=== PATIENT | female | born 1955 | race Caucasian/White ===

== ENCOUNTER 2021-09-11 00:41 | Emergency (ER) | payer MEDICARE ==
[~2021-09-11] VITALS: Ht 165.1 cm; Wt 93.0 kg
[2021-09-11 00:55] VITALS: BP 163/92
[2021-09-11] MEDS ORDERED: AMOX1TAB61 PO (01:02)
--- NOTE | 2021-09-11 01:04 | PHYS DOC ---
Adult General Chief Complaint Chief Complaint: SORE THROAT HPI HPI Patient is a 66-year-old female who presents with sore throat and nasal congestion for the last 4 days. Denies any recent traumas, illnesses, fevers, chest pain, shortness of breath, cough, abdominal pain, nausea, vomiting, dysuria, hematuria or blood in the stool. States he is eating and drinking normally for her. States he is making urine and stool normally for her. Review of Systems Review of Systems Review of systems otherwise unremarkable except noted in HPI Physical Exam Physical Exam Constitutional: Well developed, well nourished, no acute distress, non-toxic appearance. [] HENT: Normocephalic, atraumatic, bilateral external ears normal, bilateral tympanic membranes normal, bilateral posterior oropharyngeal erythema, oropharynx moist, no oral exudates, nose normal. [] Eyes: conjunctiva normal, no discharge. [] Neck: Normal range of motion, no tenderness, supple, no stridor, left-sided cervical lymphadenopathy. [] Cardiovascular:Heart rate regular rhythm, no murmur [] Lungs & Thorax: Bilateral breath sounds clear to auscultation [] Abdomen: soft, no tenderness, no masses, no pulsatile masses. [] Skin: Warm, dry, no erythema, no rash. [] Neurologic: Alert and oriented X 3, normal motor function, normal sensory function, no focal deficits noted. [] Psychologic: Affect normal, judgement normal, mood normal. [] Current Patient Data Vital Signs Vital Signs Date Time Temp Pulse Resp B/P (MAP) Pulse Ox O2 Delivery O2 Flow Rate FiO2 09/11/21 00:55 98.6 73 18 163/92 (115) 96 Room Air EKG EKG [] Radiology/Procedures Radiology/Procedures [] Heart Score C/O Chest Pain: No Risk Factors: Risk Factors: DM, Current or recent (<one month) smoker, HTN, HLP, family history of CAD, obesity. Risk Scores: Risk Factors: DM, Current or recent (<one month) smoker, HTN, HLP, family history of CAD, obesity. Course & Med Decision Making Course & Med Decision Making Patient is a 66-year-old female who presents with sore throat and nasal congestion Vital signs notable for hypertension, physical exam noted above. Centor criteria suggestive of strep pharyngitis as well as exam. Started on steroids and Augmentin in the ED. Discussed symptomatic treatment at home. Advised to call primary care physician in the morning to discuss ED visit and set up a follow-up. Gave return precautions to the ED. Patient grateful, verbalized understanding and agreed with plan of discharge. [] Dragon Disclaimer Dragon Disclaimer This electronic medical record was generated, in whole or in part, using a voice recognition dictation system. Departure Departure: Impression: Primary Impression: Strep pharyngitis Disposition: HOME / SELF CARE / HOMELESS Condition: GOOD Referrals: NON,STAFF (PCP) AMBERLY SONG Patient Instructions: Strep Throat Additional Instructions: Thank you for coming into the emergency department tonight and allow us to take care of you. Please read the attached information carefully to go back over some of the things we discussed. Please continue a Tylenol, ibuprofen and Cepacol lozenges regimen as we discussed. Please take antibiotics as prescribed. You were swabbed for Covid although it does look like you have strep throat. Please read the attached information and quarantine appropriately. Please call your primary care physician in the morning to update on your ED visit and set up a follow-up as soon as you can. Please come back with new or concerning symptoms as discussed. You have been tested for or diagnosed with COVID-19. It is an infection caused by a new type of coronavirus. COVID-19 will cause cold-like or mild flu symptoms in most. It can cause more severe symptoms like problems breathing in some. There is no treatment for COVID-19. The body will clear the infection over time. Self-care will help to ease discomfort. Steps to Take: Self-Care Rest as needed. Healthy habits may help you feel better. Steps include: Choose healthy foods including fruits and vegetables. Drink water throughout the day. Get plenty of sleep each night. If you smoke, try to quit. It may ease breathing. Avoid alcohol. Keep Others Healthy The virus can spread to others. Droplets are released every time you sneeze or cough. The droplets can get into the mouth, nose, or eyes of people near you and lead to infection. To lower the chances of spreading COVID-19 to others: Stay at home until your doctor has said it is safe to leave. If you tested positive this will mean staying isolated until both of the following are true: At least 7 days have passed since the start of illness. You are free of fever for at least 72 hours without the use of medicine. During this time: - Avoid public areas, events, or transportation. Do not return to work or school until your doctor has said it is safe to do so. - Call ahead if you need to go to a medical center. Let them know you may have COVID-19. It will help them guide you where to go. They may also ask you to wear a facemask when you come to the office. - If you call for emergency medical services, let them know you may have COVID- 19. While at home: - Try to avoid close contact with others. Stay about 6 feet away. - If possible, spend most of your time in a separate room from others. - Use a face mask if you will be in close contact with others such as sharing a room or vehicle. - Have someone wipe down common surfaces in the home. Use household cosmetic sales consultant every day on areas like doorknobs, counters, or sinks. - Cough or sneeze into a tissue. Throw the tissue away right after use. If a tissue is not available, cough or sneeze into your elbow. - Wash your hands often. Wash them after sneezing or coughing. Use soap and water and wash for at least 20 seconds. Alcohol based hand power cleaner operator can be used if soap and water is not available. - Do not prepare food for others. Avoid sharing personal items like forks, spoons, or toothbrushes. - Avoid close contact with pets while you are sick. There is no evidence of the virus passing to pets. This is a safety step until more is known about this virus. Isolation can be frustrating. Social interaction can help. Keep in touch with friends and family through phone and tech options. You can still interact with others in your home, just keep a safe distance of about 6 feet. Follow-up: Your doctors office will check in with you to see if there are any changes in your health. You may be asked to keep track of symptoms to share with them. They will also let you know when you are clear to be in public again. Problems to Look Out For: Contact your doctor if your recovery is not going as you expect. Get emergency care if you have problems such as: - Trouble breathing - Nonstop chest pain or pressure - Changes in awareness, confusion, or problems waking - Lips or face have bluish color - Worsening of symptoms If you think you have an emergency, call for emergency medical services right away. As taken from [facility] [place] Health Scripts Amoxicillin/Potassium Clav (AUGMENTIN 235125 TABLET) 1 Each Tablet 1 TAB PO BID for strep throat for 10 Days, #19 TAB 0 Refills Prov: DOMINGO LOPEZ MD 09/11/21 DOMINGO LOPEZ MD Sep 11, 2021 01:04
[2021-09-11] MEDS ORDERED: IBUPROFEN 600 MG TABLET. PO ONE ×2 (01:10→01:15)
[2021-09-11] MEDS ORDERED: ACETAMINOPHEN 500 MG TABLET PO ONE ×3 (01:10→01:15)
[2021-09-11] MEDS ORDERED: AMOXICILLIN/K CLAV 875/125MG TABLET. ONE (01:10)
[2021-09-11] MEDS ORDERED: DEXAMETHASONE 4 MG TABLET ONE (01:11)
[2021-09-11] MEDS ORDERED: DEXAMETHASONE 4 MG TABLET PO ONE (01:15)
[2021-09-11] MEDS ORDERED: AMOXICILLIN/K CLAV 875/125MG TABLET. PO ONE (01:15)
[2021-09-14] MEDS ORDERED: atorvastatin (04:49)
[2021-09-14] MEDS ORDERED: MULTIVITAMIN (04:49)
[2021-09-14] MEDS ORDERED: WOMEN (04:49)
[2021-09-14] MEDS ORDERED: lisinopril (04:49)
[2021-09-14] MEDS ORDERED: metformin (04:49)
[2021-09-14] MEDS ORDERED: levothyroxine (04:49)
[2021-09-14] MEDS ORDERED: [UNRECOGNIZED DRUG - OTHER] (04:49)
[2021-09-14] MEDS ORDERED: ASPIRIN 81 MG PO (04:49)
== END 2021-09-11 01:25 | disposition home or self-care (01) ==
LOC: ER 00:41
DX: J02.0 Streptococcal pharyngitis (principal); Z20.822 Contact with and (suspected) exposure to COVID-19
CPT/HCPCS: 99284; J8540; U0003